=== PATIENT | female | born 1990 | race Caucasian/White ===

== ENCOUNTER → 2017-06-26 | Outpatient (CLI) | payer OTHER | END | disposition home or self-care (01) | LOC: C.RAD 12:36 | DX: M79.642 Pain in left hand (principal) ==

== ENCOUNTER 2017-07-22 17:37 | Emergency (ER) | payer OTHER ==
[~2017-07-22] VITALS: Ht 162.6 cm; Wt 72.3 kg
[2017-07-22 17:43] VITALS: TEMP 36.7; Ht 162.6 cm; Wt 72.3 kg
[2017-07-22] MEDS ORDERED: XYLOCAINE 1%/SOD BICARB 20 ML VIAL INFIL ONE (18:00)
--- NOTE | 2017-07-22 18:41 | EMERGENCY ROOM VISIT NOTE ---
ED Visit Note First contact with patient: 17:46 CHIEF COMPLAINT: Left knee laceration HISTORY OF PRESENT ILLNESS: This 27-year-old female presents to ER with chief complaint of a laceration to her left knee. The patient states that she was at work cutting a box and accidentally stabbed herself with the scissors. The patient states that her tetanus is up-to-date. The patient states that it is still bleeding. Patient denies any blood thinners. The patient denies any difficulty moving her knee. REVIEW OF SYSTEMS: 6 system review was performed and was negative unless stated otherwise in history of present illness. PMH: The patient is healthy; there is no significant medical or surgical history. SOCIAL HISTORY: Patient living at home. Non-smoker, no alcohol or drug use. PHYSICAL EXAM: Vital Signs: Were reviewed reviewed Nurse's notes. GENERAL: 27- year-old female appears in no acute distress. MENTAL Status: Alert and oriented 3. LEFT KNEE: There is a 2.5 cm long laceration on the just superior and lateral to the superior edge of the patella. The edges are gaping apart. There is no foreign material in the wound and it looks clean. There is mild active bleeding. No deep structures such as tendons or nerves are seen in the base of the wound. EMERGENCY DEPARTMENT COURSE: The patient was evaluated. PROCEDURE: Wound Repair: Complexity: Basic. Verbal consent was obtained after the risks and benefits were explained, including but not limited to bleeding, scarring, infection, pain, and bone/joint /nerve damage. The skin was prepped with betadine and a sterile field set. The wound was anesthetized with 3.0 ml of 1% buffered lidocaine. With direct pressure the bleeding subsided. Copious irrigation was performed using sterile saline. The wound was explored for foreign bodies and none found. Debridement was not performed. The wound edges were approximated using 5-0 Ethilon with 5 simple interrupted sutures. Hemostasis and excellent approximation was achieved. Antibacterial ointment and a sterile dressing and pressure bandage was applied. Detailed wound care instructions and signs and symptoms of infection reviewed with the patient. No complications and the patient tolerated the procedure well. DIAGNOSIS: 2.5 cm left knee laceration DISCHARGE INSTRUCTIONS & TREATMENT: Refrain from flexing your knee as much as possible. Keep wound clean and dry. No water on the area for 12-24 hrs then no soaking until sutures removed. Do not allow any crusting or dried blood to accumulate on sutures. If this occurs, use a 1:1 solution of hydrogen peroxide/ water on a Q-tip to clean the wound. Use an antibiotic ointment for 3-4 days, then let wound dry. Suture removal in 10 days. Follow up sooner for any signs of infection (increasing redness, swelling, drainage). Ice and elevate for swelling and pain. Tylenol 650 mg every 6 hrs for pain. Keep covered when in sun until sutures removed then SPF 50 or higher for one year. Vitamin E oil if desired two weeks after suture removal for reduction of scar. Current/Historical Medications No Active Prescriptions or Reported Meds Allergies Coded Allergies: Cefaclor (Verified Allergy, Intermediate, UNKNOWN, 07/22/17) Penicillins (Verified Allergy, Intermediate, UNKNOWN, 07/22/17) Vital Signs Date Time Temp Pulse Resp B/P (MAP) Pulse Ox O2 Delivery O2 Flow Rate FiO2 07/22/17 17:43 36.7 97 18 134/83 98 Room Air Departure Information Prescriptions No Active Prescriptions or Reported Meds Referrals Andrés Sanchez M.D. (PCP) Patient Instructions My [facility]
[2017-07-22 19:04] VITALS: BP 127/81; PULSE 87; O2SAT 100
== END 2017-07-22 19:05 | disposition home or self-care (01) ==
LOC: C.EDB 17:38 → C.EDD 19:05
DX: S81.012A Laceration without foreign body, left knee, initial encounter (principal); W45.8XXA Other foreign body or object entering through skin, initial encounter; Y99.0 Civilian activity done for income or pay